=== PATIENT | female | born 1965 | race Caucasian/White ===

== ENCOUNTER 2021-02-28 12:54 | Emergency (ER) | payer OTHER, BC, SELFPAY ==
--- NOTE | ~2021-02-28 | XR_ITS ---
EXAMINATION: XR hand LT min 3V INDICATION: Left hand pain TECHNIQUE: Three views of the left hand are obtained. COMPARISON: None available FINDINGS: There is no fracture, dislocation, or subluxation. The bones, soft tissues, and joint space s are normal. IMPRESSION: 1. No acute osseous abnormality. Reviewed, dictated and finalized at location A.
--- NOTE | ~2021-02-28 | XR_ITS ---
EXAMINATION: XR shoulder LT min 2V INDICATION: Left shoulder pain TECHNIQUE: Four views of the left shoulder are submitted. COMPARISON: None FINDINGS: Normal alignment. No fracture. Glenohumeral and acromioclavicular joint spaces are normal. Soft tissues are unremarkable. IMPRESSION: 1. No acute osseous abnormality. Reviewed, dictated and finalized at location A.
[2021-02-28 12:54] VITALS: BP 124/84; PULSE 72; RESP 16; TEMP 36.7; O2SAT 99
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
== END 2021-02-28 14:05 | disposition home or self-care (01) ==
PROVIDERS: Emergency Provider General Practice
DX: S60.012A Contusion of left thumb without damage to nail, initial encounter (principal); S43.402A Unspecified sprain of left shoulder joint, initial encounter; V03.10XA Pedestrian on foot injured in collision with car, pick-up truck or van in traffic accident, initial encounter
CPT/HCPCS: 73030; 73130; 99284

== ENCOUNTER 2025-05-15 10:21 | Emergency (ER) | payer OTHER, BC, SELFPAY ==
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
[2025-05-15 10:31] VITALS: BP 114/90; PULSE 77; RESP 17; TEMP 36.7; O2SAT 98
--- OUTSIDE RECORDS SUMMARY | 2025-05-15 11:41 | XMS_ITS | Clinical Summary ---
Author Organization [facility] Address [address] [place] [address] Care Team Providers Care Off Track Betting Manager Name Role Phone Unavailable Primary Care Provider Unavailabl e Source Comments [facility],non-owned Affiliates and Associated Physician Practices is amultiple site organization consisting of ambulatory clinics and hospital sitesin [place], [place], [place] and [place]. This disclosure is being madepursuant to the Care Everywhere program and may not contain all information available regarding this patient. Last updated 18.[employer] [facility] Allergies No known active allergies Medications * Be aware that medications may not be up to date on this document. Alwaysverify current medications with the patient. No known medications Social History Tobacco Use Types Packs/Day Years Used Date Smoking Tobacco: Never Smokeless Tobacco: Never Comments No Sex and Gender Information Value Date Recorded Sex Assigned at Not on file Legal Sex Female 11:46 AM COIL WRAPPER Gender Identity Female 07/28/2017 11:52 AM COIL WRAPPER Sexual Orientation Not on file Last Filed Vital Signs Vital Sign Reading Time Taken Comments Blood Pressure 130/69 07/28/2017 11:56 AM COIL WRAPPER Pulse 64 07/28/2017 11:56 AM COIL WRAPPER Temperature 36.7 C (98.1 F) 07/28/2017 11:56 AM COIL WRAPPER Respiratory Rate - - Oxygen Saturation 100% 07/28/2017 11:56 AM COIL WRAPPER Inhaled Oxygen Concentration - - Weight 68 kg (150 lb) 07/28/2017 11:56 AM COIL WRAPPER Height 134.6 cm (4' 5) 07/28/2017 11:56 AM COIL WRAPPER Body Mass Index 37.54 07/28/2017 11:56 AM COIL WRAPPER Plan of Treatment Health Maintenance Due Date Last Done Comments LEO (AGES 45-75) - COL ON CA SCREENING 1965 COLON MONITORING 1965 COLONOSCOPY - COLON CA SCREENING 1965 CT COLONOGRAPHY - COLON CA SCREENING 1965 Colorectal Cancer Screening 1965 FIT - COLON CA SCREENING 1965 FLEX SIG - COLON CA SCREENING 1965 LIPID TESTING 1965 MAMMOGRAM 1965 HIV SCREENING 1980 HEPATITIS C SCREENING 11/10/1983 DTAP/TDAP/TD VACCINES (1 - Tdap) 1984 HEPATITIS B VACCINE (1 of 3 - 19+ 3-dose series) 1984 PAP SMEAR 1986 Cervical Cancer Screening 11/15/1995 PAP with HPV 11/15/1995 PNEUMOCOCCAL VACCINE 50+ (1 of 1 - PCV) 11/15/2015 ZOSTER VACCINE (1 of 2) 11/15/2015 DEPRESSION SCREENING 06/13/2024 COVID-19 VACCINE (1 - 2024-2 6 season) 2025 INFLUENZA VACCINE (#1) 2025 HIB VACCINE Aged Out No longer eligi ble based on patient's age to complete this topic HPV VACCINE Aged Out No longer eligi ble based on patient's age to complete this topic MENINGOCOCCAL (Group B) VACC INE SHARED DECISION-MAKING Aged Out No longer eligibl e based on patient's age to complete this topic MENINGOCOCCAL GROUPS A/C/Y/W VACCINE Aged Out No longer eligible b ased on patient's age to complete this topic Insurance ANTH
--- OUTSIDE RECORDS SUMMARY | 2025-05-15 11:41 | XMS_ITS | Clinical Summary ---
Author Organization [facility] Address [address] [place] [address] Care Team Providers Care Tape Maker Name Role Phone Arya French MD Primary Care Provider [phone] Allergies No known active allergies Medications ibuprofen (ADVIL,MOTRIN) 600 mg tablet Take 600 mg by mouth every 6 (six) hours as needed 1 Active meloxicam (MOBIC) 15 mg tabletIndications:O ther osteoarthritis involving multiple joints Take 1 tablet (15 mg total) by mouth daily 60 tablet 2 3 Active omeprazole (PriLOSEC) 20 mg capsuleIndications: Gastroesophageal reflux disease without esophagitis Take 1 capsule (20 mg total) by mouth daily 30 capsule 11 4 Active calcium carbonate-vitamin D3 1,250 mg (500 mg elemental)-400 unit chewable tablet Take 1 tablet by mouth daily Active rosuvastatin (CRESTOR) 5 mg tabletIndications:L ipid disorder TAKE 1 TABLET(5 MG) BY MOUTH DAILY 90 tablet 5 Active Active Problems Problem Noted Date Diagnosed Date Encounter for screening colonoscopy 05/01/2024 Knee pain 09/19/2017 Nocturia 09/19/2017 Benign colonic polyp 06/09/2011 Encounters Date Type Department Care Team Description 04/22/2025 10:32 AM KEY ACCOUNT REPRESENTATIVE - 04/22/2025 11:59 PM KEY ACCOUNT REPRESENTATIVE Hospital Encounter [facility] at [address] [place] [address] Screening mammogram, encounter for Discharge Disposition: Discharge to home or self care from Last 3 Months Immunizations Immunization Administration Dates Next Due Influenza, Trivalent, Recomb inant, Egg Free, Preservative Free, Antibiotic Free, IM (FLUBLOK) 04/17/2024 Surgical History Surgery Date Site/Laterality Comments ECTOPIC SURGERY TONSILLECTOMY COLONOSCOPY POLYPECTOMY TUBAL LIGATION not tubal --had right fallopian tube removed Medical History Medical History Date Comments History of colon polyps Colon polyp Hyperlipidemia Family history of colon cancer in mother Ectopic Family History Medical History Relation Name Comments Diabetes Father dad Heart disease Father dad Hypertension Father dad Cancer Mother mom Colon cancer Mother mom Cancer, colon; Heart disease Mother mom Stroke Mother mom Cancer Other 1 Diabetes Other 1 Heart disease Other 1 Hypertension Other 1 Lung disease Other 1 Other Other 1 No family histo ry of Cancer, breast; Stroke Other 1 Other Other 2 No family histo ry of Cervical cancer; Other Other 3 No family histo ry of Ovarian cancer; Relation Name Status Comments Father dad Mother mom Other 1 Other 2 Other 3 Social History Tobacco Use Types Packs/Day Years Used Date Smoking Tobacco: Former Cigarettes 0.3 10 Smokeless Tobacco: Never Tobacco Cessation:Counseling Given: Not Answered Comments:I have not smoked in 25 years Alcohol Use Standard Drinks/Week Comments No 0 (1 standard drink = 0.6 oz pur e alcohol) AUDIT-C Answer Date Recorded Q1: How often do you have a drink containing alcohol? Never 06/22/2024 Q2: How many drinks containi ng alcohol do you have on a typical day when you are drinking? Patient does not drink Q3: How often do you have si x or more drinks on one occasion? Never 06/22/2024 PHQ-2 Answer Date Recorded PHQ-2 Total Score (If total score is 3 or more points, staff should administer the PHQ-9) 0 01/28/2021 Personal Safety Answer Date Recorded Have you ever been in or are you currently in a harmful physical or emotional relationship or is someone making you feel afraid or unsafe? Denies 06/22/2024 Comments No Sex and Gender Information Value Date Recorded Sex Assigned at Not on file Legal Sex Female 2:01 AM KEY ACCOUNT REPRESENTATIVE Gender Identity Female 01/28/2021 1:54 PM CDT Sexual Orientation Not on file Last Filed Vital Signs Vital Sign Reading Time Taken Comments Blood Pressure 111/76 06/22/2024 10:06 AM KEY ACCOUNT REPRESENTATIVE Pulse 69 06/22/2024 10:06 AM KEY ACCOUNT REPRESENTATIVE Temperature 36.8 C (98.2 F) 06/22/2024 8:22 AM KEY ACCOUNT REPRESENTATIVE Respiratory Rate 17 06/22/2024 10:06 AM KEY ACCOUNT REPRESENTATIVE Oxygen Saturation 97% 06/22/2024 10:06 AM KEY ACCOUNT REPRESENTATIVE Inhaled Oxygen Concentration - - Weight 72.6 kg (160 lb) 04/22/2025 10:37 AM KEY ACCOUNT REPRESENTATIVE Height 162.6 cm (5' 4) 04/22/2025 10:37 AM KEY ACCOUNT REPRESENTATIVE Body Mass Index 27.46 04/22/2025 10:37 AM KEY ACCOUNT REPRESENTATIVE Plan of Treatment Health Maintenance Due Date Last Done Comments Cervical Cancer Screening 1965 Hepatitis C Screening 1965 DTaP/Tdap/Td Vaccine (1 - Tdap) 1976 Hepatitis B Screening 11/15/1983 Zoster Vaccine (1 of 2) 11/15/2015 Depression Screening 01/30/2022 01/30/2021 Covid-19 Vaccine (2 - season) 2025 08/21/2020 Influenza Vaccine (#1) 2025 04/17/2024 Regular Well Visit/Exam 18-64 04/17/2025 04/17/2024, 03/24/2023, 01/30/2021, Additional history exists Breast Cancer Screening-Mammogram 04/22/2026 04/22/2025, 04/17/2024, 03/24/2023, Additional history exists Colon Cancer Screening-Colonoscopy 06/22/2034 06/22/2024, 06/19/2019, 08/09/2016 Colon Cancer Screening-CT Colonography Discontinued 06/22/2024, 06/19/2019, 08/09/2016 Colon Cancer Screening-DNA Stool Discontinued 06/22/2024, 06/19/2019, 08/09/2016 Colon Cancer Screening-FIT Discontinued 06/22, 06/19/2019, 08/09/2016 Colon Cancer Screening-Sigmoidoscopy Discontinued 06/22/2024, 06/19/2019, 08/09/2016 Pneumococcal vaccine <65 Aged Out No longer eligible based on patient's age to complete this topic Procedures Procedure Name Priority Date/Time Associated Diagnosis Comments SCREENING MAMMOGRAM BILATERAL W LUKASZ Schedule Routine, Read Routine (OP Routine) 04/22/2025 11:02 AM KEY ACCOUNT REPRESENTATIVE Screening mammogram, encounter for COLONOSCOPY 06/22/2024 8:59 AM KEY ACCOUNT REPRESENTATIVE from Last 3 Months or Most Recently Relevant to Health Maintenance Results * Screening Mammogram Bilateral W Lukasz (04/22/2025 11:02 AM KEY ACCOUNT REPRESENTATIVE) Anatomical Region Laterality Modality Breast Bilateral Mammography Impressions 04/23/2025 3:46 PM KEY ACCOUNT REPRESENTATIVE Bilateral No evidence of malignancy in either breast. OVERALL BI-RADS FINAL ASSESSMENT: 2 - Benign RECOMMENDATION: Recommend bilateral annual screening mammography. Narrative 04/23/2025 3:46 PM KEY ACCOUNT REPRESENTATIVE EXAMINATION: Screening Mammogram Bilateral W Lukasz: 04/22/2025 COMPARISON: Relevant prior studies available at the time of interpretation were reviewed, including the most recent mammogram on: 04/17/2024. TECHNIQUE: Mammography was performed with 2D and 3D digital breast tomosynthesis (DBT) images. CAD was utilized. BREAST PARENCHYMAL COMPOSITION: The breasts are almost entirely fatty. FINDINGS: Bilateral There is no suspicious mass, calcification, or architectural distortion in either breast. us Self Screening Mammogram IMG MAMMO PROCEDURES Fi nal Result * Colonoscopy (06/22/2024 8:59 AM KEY ACCOUNT REPRESENTATIVE) Anatomical Region Laterality Modality Other Narrative Procedure Note Matt Groves MD - 06/22/2024 8:59 AM CST ENDOSCOPY LAB Patient Name: Rhoda Griffiths Procedure Date: 06/22/2024 8:59 AM Admit Type: Outpatient Room: [facility] 8 Date of : 1965 Instrument Name: [id number] Gender: Female Note Status: Finalized Procedure: Colonoscopy Indications: High risk colon cancer surveillance: Personalhistory of colonic polyps, Last colonoscopy: June 2019 Providers: Matt Groves M.D. Referring MD: Arya French M.D. Medicines: Monitored Anesthesia Care Complications: No immediate complications. Estimated Blood Loss: Estimated blood loss: none. Procedure: Pre-Anesthesia Assessment: - Immediately prior to administration ofmedications, the patient was re-assessed for adequacy to receive sedatives. - The risks and benefits of the procedure and the sedation options and risks were discussed with the patient. All questions were answered and informed consent was obtained. The benefits, risks and alternatives of theprocedure and sedation were discussed and informed consentwas obtained. All questions were answered. Please referto the signed informed consent document in the medical record. The scope was passed under direct vision.The Colonoscope was introduced through the anus and advanced to the the cecum, identified byappendiceal orifice and ileocecal valve. The colonoscopy was performed without difficulty. The patient tolerated the procedure well. The quality of the bowel preparation was evaluated using the BBPS (BostonBowel Preparation Scale) with scores of: Right Colon = 3, Transverse Colon = 3 and Left Colon = 3 (entiremucosa seen well with no residual staining, smallfragments of stool or opaque liquid). The total BBPS score equals 9. The bowel preparation used was GoLYTELYvia split dose instruction. AI Technology was utilized during the procedure to aid in polyp detection. Findings: The perianal and digital rectal examinations were normal. Multiple small and large-mouthed diverticula were found in thesigmoid colon. There was a medium-sized lipoma, in the sigmoid colon. The exam was otherwise without abnormality on direct and retroflexion views. Impression: - Diverticulosis in the sigmoid colon. - The examination was otherwise normal on directand retroflexion views. - No specimens collected. Recommendation: - Repeat colonoscopy in 7 years for surveillance. - Return to primary care physician as previously scheduled. Attending Participation: I personally performed the entire procedure. Electronically signed by Matt Groves MD Matt Groves M.D. 06/22/2024 9:26:51 AM This document was signed electronically. Number of Addenda: 0 Note Initiated On: 06/22/2024 8:59 AM Scope Withdrawal Time: 0 hours 8 minutes 9 seconds Scope In: 9:11:12 AM Scope Out: 9:25:28 AM Matt Groves MD ENDOSCOPY PROCEDUR ES Final Result from Last 3 Months or Most Recently Relevant to Health Maintenance Insurance [facility] [employer] [place] [employer] [place] [employer] [place] Advance Directives For more information, please contact: [phone] * Full Code (Latest Code Status on File) Date Activated Date Inactivated Comments 06/22/2024 8:14 AM 06/22/2024 2:45 PM * Full Code Date Activated Date Inactivated Comments 06/19/2019 6:21 AM 06/19/2019 12:10 PM Care Teams Tape Maker Relationship Specialty Start Date End Date Arya French MD [facility] [address] Carola HANSEN [address] [place] [address] PCP - General Cardiovascular Disease 01/18/19
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
[2025-05-15 12:09] VITALS: BP 115/88; PULSE 70; RESP 18; O2SAT 100
--- OUTSIDE RECORDS SUMMARY | 2025-05-15 13:03 | XMS_ITS | Clinical Summary ---
Author Organization [facility] Address [address] [place] [address] Care Team Providers Care Animal Scientist Name Role Phone Unavailable Primary Care Provider Unavailabl e Source Comments [facility],non-owned Affiliates and Associated Physician Practices is amultiple site organization consisting of ambulatory clinics and hospital sitesin [place], [place], [place] and [place]. This disclosure is being madepursuant to the Care Everywhere program and may not contain all information available regarding this patient. Last updated 18.[employer] [facility] Allergies No known active allergies Medications * [...] on file Legal Sex Female 11:46 AM CRANE OILER Gender Identity Female 07/28/2017 11:52 AM CRANE OILER Sexual Orientation Not on file Last Filed Vital Signs Vital Sign Reading Time Taken Comments Blood Pressure 130/69 07/28/2017 11:56 AM CRANE OILER Pulse 64 07/28/2017 11:56 AM CRANE OILER Temperature 36.7 C (98.1 F) 07/28/2017 11:56 AM CRANE OILER Respiratory Rate - - Oxygen Saturation 100% 07/28/2017 11:56 AM CRANE OILER Inhaled Oxygen Concentration - - Weight 68 kg (150 lb) 07/28/2017 11:56 AM CRANE OILER Height 134.6 cm (4' 5) 07/28/2017 11:56 AM CRANE OILER Body Mass Index 37.54 07/28/2017 11:56 AM CRANE OILER Plan of Treatment Health Maintenance Due Date [...]
--- OUTSIDE RECORDS SUMMARY | 2025-05-15 13:03 | XMS_ITS | Clinical Summary ---
Author Organization [facility] Address [address] [place] [address] Care Team Providers Care Pump Station Operator Name Role Phone Arya French MD Primary Care Provider [phone] Allergies No known active allergies Medications ibuprofen [...] Department Care Team Description 04/22/2025 10:32 AM PARKING INSPECTOR - 04/22/2025 11:59 PM PARKING INSPECTOR Hospital Encounter [facility] at [address] [place] [address] Screening mammogram, encounter for Discharge [...] on file Legal Sex Female 2:01 AM PARKING INSPECTOR Gender Identity Female 01/28/2021 1:54 PM CDT Sexual Orientation Not on file Last Filed Vital Signs Vital Sign Reading Time Taken Comments Blood Pressure 111/76 06/22/2024 10:06 AM PARKING INSPECTOR Pulse 69 06/22/2024 10:06 AM PARKING INSPECTOR Temperature 36.8 C (98.2 F) 06/22/2024 8:22 AM PARKING INSPECTOR Respiratory Rate 17 06/22/2024 10:06 AM PARKING INSPECTOR Oxygen Saturation 97% 06/22/2024 10:06 AM PARKING INSPECTOR Inhaled Oxygen Concentration - - Weight 72.6 kg (160 lb) 04/22/2025 10:37 AM PARKING INSPECTOR Height 162.6 cm (5' 4) 04/22/2025 10:37 AM PARKING INSPECTOR Body Mass Index 27.46 04/22/2025 10:37 AM PARKING INSPECTOR Plan of Treatment Health Maintenance Due Date [...] Read Routine (OP Routine) 04/22/2025 11:02 AM PARKING INSPECTOR Screening mammogram, encounter for COLONOSCOPY 06/22/2024 8:59 AM PARKING INSPECTOR from Last 3 Months or Most Recently Relevant to Health Maintenance Results * Screening Mammogram Bilateral W Lukasz (04/22/2025 11:02 AM PARKING INSPECTOR) Anatomical Region Laterality Modality Breast Bilateral Mammography Impressions 04/23/2025 3:46 PM PARKING INSPECTOR Bilateral No evidence of malignancy in either breast. OVERALL BI-RADS FINAL ASSESSMENT: 2 - Benign RECOMMENDATION: Recommend bilateral annual screening mammography. Narrative 04/23/2025 3:46 PM PARKING INSPECTOR EXAMINATION: Screening Mammogram Bilateral W Lukasz: 04/22/2025 [...] nal Result * Colonoscopy (06/22/2024 8:59 AM PARKING INSPECTOR) Anatomical Region Laterality Modality Other Narrative Procedure Note Matt Groves MD - 06/22/2024 8:59 AM CST ENDOSCOPY LAB Patient Name: Rhoda Griffiths Procedure Date: 06/22/2024 8:59 AM Admit Type: Outpatient Room: [facility] 8 Date of : 1965 Instrument Name: [...] Most Recently Relevant to Health Maintenance Insurance [facility] [employer] [place] [place] [employer] [employer] [place] Directives For more information, please contact: [phone] * Full Code (Latest Code Status on File) Date Activated Date Inactivated Comments 06/22/2024 8:14 AM 06/22/2024 2:45 PM * Full Code Date Activated Date Inactivated Comments 06/19/2019 6:21 AM 06/19/2019 12:10 PM Care Teams Pump Station Operator Relationship Specialty Start Date End Date Arya French MD [facility] [address] Carola HANSEN [address] [place] [address] PCP - General Cardiovascular Disease 01/18/19
== END 2025-05-15 12:10 | disposition home or self-care (01) ==
PROVIDERS: Emergency Provider Nurse Practitioner Family
DX: S16.1XXA Strain of muscle, fascia and tendon at neck level, initial encounter (principal); S13.4XXA Sprain of ligaments of cervical spine, initial encounter; M47.812 Spondylosis without myelopathy or radiculopathy, cervical region; V49.40XA Driver injured in collision with unspecified motor vehicles in traffic accident, initial encounter
CPT/HCPCS: 72125; 99284